=== PATIENT | male | born 2000 ===

== ENCOUNTER 2019-08-28 22:26 | Emergency (ER) | payer OTHER ==
[~2019-08-28] VITALS: Ht 167.6 cm; Wt 64.9 kg
[~2019-08-28 22:26] MED LIST: AMOX1TAB5 PO
== END 2019-08-29 02:22 | disposition home or self-care (01) ==
LOC: ER 22:26
DX: J11.1 Influenza due to unidentified influenza virus with other respiratory manifestations (principal); B34.9 Viral infection, unspecified; K52.89 Other specified noninfective gastroenteritis and colitis; E86.0 Dehydration

== ENCOUNTER 2023-02-22 01:35 | Emergency (ER) | payer OTHER ==
[~2023-02-22] VITALS: Ht 170.2 cm; Wt 68.0 kg
== END 2023-02-22 02:43 | disposition home or self-care (01) ==
LOC: ER 01:35
DX: S81.851A Open bite, right lower leg, initial encounter (principal); W54.0XXA Bitten by dog, initial encounter; Y93.K1 Activity, walking an animal; Y92.480 Sidewalk as the place of occurrence of the external cause; Y99.9 Unspecified external cause status